=== PATIENT | male | born 1970 | race Caucasian/White ===

== ENCOUNTER 2019-06-17 07:43 | Emergency (ER) | payer MEDICAID ==
[~2019-06-17] VITALS: Ht 175.3 cm; Wt 81.6 kg
[2019-06-17 07:48] VITALS: BP_SYST 131
--- NOTE | 2019-06-17 07:48 | NUR ---
Patient to ER bed 3 to gown for evaluation. Side rails up. Assumed care.
--- NOTE | 2019-06-17 07:59 | NUR ---
Patient arrived via POV, AAOx4, and ambulatory with steady gait. Patient c/c of cough with green sputum, congestion, ear itching for 3-4 days. Patient states no fever or chills. Patient states he has history of bronchitis and "feels like it is coming on, he takes levaquin and promethazine for it." Patient denies shortness of breath, chest pain, abdominal pain, nausea, vomiting, diarrhea. Will continue to follow up and monitor.
--- NOTE | 2019-06-17 08:10 | NUR ---
Patient refusing chest x-ray. aware.
--- NOTE | 2019-06-17 08:12 | NUR ---
ER at bedside examining patient.
[2019-06-17 08:34] VITALS: BP_SYST 131
--- NOTE | 2019-06-17 08:34 | NUR ---
Patient given written and verbal discharge instructions and verbalizes understanding. ER MD discussed with patient the results and treatment provided. Patient in stable condition. ID arm band removed. Rx of levaquin, robitussin, Tylenol given. Patient educated on pain management and to follow up with PMD. Pain Scale 0/10. Opportunity for questions provided and answered. Medication side effect fact sheet provided.
== END 2019-06-17 08:34 | disposition home or self-care (01) ==
LOC: SED 07:43
DX: J32.9 Chronic sinusitis, unspecified (principal); J02.9 Acute pharyngitis, unspecified
CPT/HCPCS: 99283

== ENCOUNTER 2020-07-31 07:32 | Emergency (ER) | payer SELFPAY ==
[~2020-07-31] VITALS: Ht 175.3 cm; Wt 77.1 kg
[2020-07-31 07:46] VITALS: BP_SYST 126
[2020-07-31 08:21] LABS: BASOPHILS % (AUTO) 0.4 % (0.0-2.0); EOSINOPHILS # (AUTO) 0.1 K/uL (0.0-0.4); EOSINOPHILS % (AUTO) 0.8 % (0.0-4.0); HEMATOCRIT 44.8 % (36-54); HEMOGLOBIN 15.1 g/dL (14.0-18.0); LYMPHOCYTES # (AUTO) 2.6 K/uL (1.0-5.5); LYMPHOCYTES % (AUTO) 33.3 % (20.5-51.5); MEAN CORPUSCULAR HEMOGLOBIN 26 pg (27-31); MEAN CORPUSCULAR HGB CONC 34 % (32-36); MEAN CORPUSCULAR VOLUME 78 fL (79.0-98.0); MONOCYTES # (AUTO) 0.4 K/uL (0.0-1.0); MONOCYTES % (AUTO) 4.7 % (1.7-9.3); NEUTROPHILS # (AUTO) 4.8 K/uL (1.8-7.7); NEUTROPHILS % (AUTO) 60.8 % (40.0-70.0); PLATELET COUNT (AUTO) 290 K/uL (130-430); RED BLOOD CELL COUNT(AUTO) 5.78 MIL/uL (4.2-6.2); RED CELL DISTRIBUTION WIDTH 12.7 % (9.0-15.0); WHITE BLOOD COUNT (AUTO) 7.9 K/uL (4.8-10.8)
[2020-07-31 08:24] LABS: CALCIUM 8.7 mg/dL (8.4-11.0); CREATININE 0.73 mg/dL (0.55-1.30); POTASSIUM 3.7 mmol/L (3.5-5.1)
[2020-07-31 08:39] LABS: ALBUMIN 4.1 g/dL (3.4-4.8); BILIRUBIN,DIRECT 0.2 mg/dL (0.0-0.3); FREE T4 (FREE THYROXINE) 1.2 ng/dl (0.8-1.5); THYROID STIMULATING HORMONE 1.39 uIu/mL (0.36-3.74); TOTAL BILIRUBIN 0.6 mg/dL (0.0-1.0)
[2020-07-31 09:10] VITALS: BP_SYST 126
== END 2020-07-31 09:11 | disposition home or self-care (01) ==
LOC: SED 07:32
DX: R50.9 Fever, unspecified (principal); R61 Generalized hyperhidrosis
CPT/HCPCS: 36415; 71045; 80048; 80076; 84439; 84443-TC; 85025; 99284

== ENCOUNTER 2022-09-14 10:10 | Emergency (ER) | payer MEDICAID ==
[~2022-09-14] VITALS: Ht 175.3 cm; Wt 81.6 kg
[2022-09-14 10:18] VITALS: BP_SYST 149
[2022-09-14 12:16] VITALS: BP_SYST 145
== END 2022-09-14 12:20 | disposition home or self-care (01) ==
LOC: SED 10:10
DX: R46.89 Other symptoms and signs involving appearance and behavior (principal); Z88.2 Allergy status to sulfonamides; Z79.899 Other long term (current) drug therapy
CPT/HCPCS: 99283

== ENCOUNTER 2023-06-07 02:22 | Emergency (ER) | payer MEDICAID ==
[~2023-06-07] VITALS: Ht 175.3 cm; Wt 83.5 kg
[2023-06-07 02:30] VITALS: BP_SYST 154; PULSE 98; RESP 18; TEMP 98.2; O2SAT 95
[2023-06-07] MEDS ORDERED: [UNRECOGNIZED DRUG - CODE] PO (04:02)
[2023-06-07 04:07] VITALS: BP_SYST 136; PULSE 97; RESP 17; TEMP 98.2; O2SAT 97
== END 2023-06-07 04:07 | disposition home or self-care (01) ==
LOC: SED 02:22
DX: H53.8 Other visual disturbances (principal); R09.81 Nasal congestion; E11.9 Type 2 diabetes mellitus without complications; I10 Essential (primary) hypertension; Z88.2 Allergy status to sulfonamides; Z79.899 Other long term (current) drug therapy
CPT/HCPCS: 99282

== ENCOUNTER 2023-06-30 04:09 | Emergency (ER) | payer MEDICAID ==
[~2023-06-30] VITALS: Ht 175.3 cm; Wt 81.6 kg
[~2023-06-30 04:09] MED LIST: [UNRECOGNIZED DRUG - CODE] PO
[2023-06-30 04:17] VITALS: BP_SYST 139; PULSE 84; RESP 16; TEMP 97; O2SAT 98
[2023-06-30 04:33] VITALS: BP_SYST 139; PULSE 84; RESP 16; TEMP 97; O2SAT 98
== END 2023-06-30 04:33 | disposition home or self-care (01) ==
LOC: SED 04:09
DX: H69.93 Unspecified Eustachian tube disorder, bilateral (principal); F31.30 Bipolar disorder, current episode depressed, mild or moderate severity, unspecified; E11.9 Type 2 diabetes mellitus without complications; I10 Essential (primary) hypertension; Z88.2 Allergy status to sulfonamides; Z79.899 Other long term (current) drug therapy
CPT/HCPCS: 99281